=== PATIENT | female | born 1975 | race Caucasian/White ===

== ENCOUNTER 2024-06-01 13:28 | Emergency (ER) | payer OTHER, SELFPAY ==
[2024-06-01 13:35] VITALS: BP 115/76
--- NOTE | 2024-06-01 13:48 | ED.GENMED ---
History of Present Illness
General
Chief Complaint: Musculo-Skeletal Complaint
Time Seen by Provider: 06/01/24 13:30
History of Present Illness
History of Present Illness:
49 yo female presents to the Emergency Department under custody of PD for evaluation of R wrist pain. Injured the wrist last night when accidentally punching a wall. Pain to ulnar styloid region. No distal paresthesias
Review of Systems
Review of Systems
Allergies reviewed?: Yes
All Other Systems: ROS reviewed and negative except as documented in HPI and ROS
Phy Exam
Physical Exam
Physical Exam:
GEN: Well appearing, NAD, WDWN
HEENT: Oral mucosa moist, no scleral icterus
Cardiac: Regular rate
Lung: No respiratory distress, no tachypnea
MSK: No gross deformity or injuries. Mild swelling to the right ulnar styloid, range of motion of the right wrist and hand normal, tenderness to the ulnar styloid. No right elbow tenderness
Skin: Good color, no pallor or jaundice, no rashes
Neuro: AO x3, moves all extremities freely
Psych: Calm, cooperative
Course
Orders/Labs/Results
Orders:
Orders
06/01/24 13:33
Wrist, Right 3 Views [CR Wrist - Right Min 3 Views] Urgent
Comment:
Reason For Exam: pain, injury
Vital Signs
Initial and Last Documented VS:
Initial Vital Signs
Temp Pulse Resp BP Pulse Ox
98.0 F 86 20 115/76 93
06/01/24 13:35 06/01/24 13:35 06/01/24 13:35 06/01/24 13:35 06/01/24 13:35
Last Documented Vital Signs
Temp Pulse Resp BP Pulse Ox
98.0 F 86 20 115/76 93
06/01/24 13:35 06/01/24 13:35 06/01/24 13:35 06/01/24 13:35 06/01/24 13:35
MDM/Problems Addressed
MDM/Problems Addressed:
Imaging unremarkable, no e/o fx. Discussed supportive care. D/C into care of PD
*Critical Care Note
Total Time (30-74mins, 75-104mins- exclusive of procedures): Not Applicable
ED Attending Note
-
Portions of this chart may have been created with voice recognition software.� Occasional wrong word or��sound alike� substitutions may have occurred due to the inherent limitations of voice recognition software.
Discharge Plan
Departure
Patient Disposition: [facility]
Date of Disposition: 06/01/24
Time of Disposition: 14:02
Discharge Problem:
Right wrist sprain
Instructions: Wrist Sprain ED
Referrals:
[facility] [Family Provider] -
Activity Restrictions/Additional Instructions:
Apoorva Hallman is medically cleared for incarceration
Interventions
Interventions:
*Risk Screen - Suicide Last Done: 06/01/24 13:52
*General Assessment Last Done: 06/01/24 13:52
*Neglect/Abuse Screening Last Done: 06/01/24 13:52
ED- Fall Risk Assessment Last Done: 06/01/24 14:18
*ED COVID-19 Vaccine History Last Done: 06/01/24 13:52
*Nursing Disposition Last Done: 06/01/24 14:18
ED-Musculoskeletal Assessment Last Done: 06/01/24 13:53
Discharge Date and Time
Discharge Date/Time: 06/01/24 14:19
Print Language: PERSIAN
== END 2024-06-01 14:19 ==
LOC: EMR 13:28
PROVIDERS: EMERGENCY PHYSICIAN Emergency Medicine
DX: S63.501A Unspecified sprain of right wrist, initial encounter (principal); W22.01XA Walked into wall, initial encounter
CPT/HCPCS: 99283; 73110